=== PATIENT | male | born 2000 | race Caucasian/White ===

== ENCOUNTER 2020-08-10 17:22 | Emergency (ER) | payer OTHER ==
[~2020-08-10] VITALS: Ht 177.8 cm; Wt 110.2 kg
[2020-08-10] MEDS ORDERED: NEURONTIN 300M300 M2 PO (17:29)
[2020-08-10] MEDS ORDERED: FLEXERIL PO (17:29)
[2020-08-10] MEDS ORDERED: MEDROLDOSEPACK PO (18:01)
[2020-08-10] MEDS ORDERED: ROBAXIN 750 MG750 MG PO (18:01)
[2020-08-10] MEDS ORDERED: NABUMETONE 500500 M2 PO (18:01)
[2020-08-10 18:39] VITALS: BP 158/74
== END 2020-08-10 18:40 | disposition home or self-care (01) ==
LOC: M.ERS 17:22
DX: M54.16 Radiculopathy, lumbar region (principal)

== ENCOUNTER 2020-09-23 14:48 | Emergency (ER) | payer OTHER ==
[~2020-09-23] VITALS: Ht 175.3 cm; Wt 111.1 kg
[~2020-09-23 14:48] MED LIST: FLEXERIL PO; MEDROLDOSEPACK PO; NABUMETONE 500500 M2 PO; NEURONTIN 300M300 M2 PO; ROBAXIN 750 MG750 MG PO
[2020-09-23] MEDS ORDERED: MEDROLDOSEPACK PO (15:13)
[2020-09-23] MEDS ORDERED: NORCO5 PO (15:13)
[2020-09-23 15:27] VITALS: BP 145/68
== END 2020-09-23 15:28 | disposition home or self-care (01) ==
LOC: M.ERS 14:48
DX: M54.42 Lumbago with sciatica, left side (principal)